=== PATIENT | male | born 1995 ===

== ENCOUNTER 2018-12-07 00:01 | Emergency (ER) | payer SELFPAY ==
[2018-12-07 00:12] VITALS: BP 134/72; PULSE 68; RESP 18; TEMP 98.2; O2SAT 100
--- NOTE | 2018-12-07 00:45 | C.PDOC ---
History Of Present Illness 23 y/o male presents to the ED complaining of bilateral eye irritation, onset this afternoon. 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 He was wearing a mask, with inadequate eye protection. Patient denies any change in vision. He also notes excess tearing from both ears. No FB sensation. Time Seen by Provider: 12/07/18 00:10 Chief Complaint (Nursing): Eye Problem History Per: Patient History/Exam Limitations: no limitations Onset/Duration Of Symptoms: Hrs Current Symptoms Are (Timing): Still Present Severity: Moderate Wears Contact Lens?: No Associated Symptoms: Pain. denies: Decreased Vision, Discharge From Eye Past Medical History Reviewed: Historical Data, Nursing Documentation, Vital Signs Vital Signs: Last Vital Signs Temp 98.2 F 12/07/18 00:07 Pulse 68 12/07/18 00:07 Resp 18 12/07/18 00:07 BP 134/72 12/07/18 00:07 Pulse Ox 100 12/07/18 00:07 - Medical History PMH: No Chronic Diseases Surgical History: No Surg Hx Family History: States: No Known Family Hx - Social History Hx Tobacco Use: No Hx Alcohol Use: No Hx Substance Use: No - Immunization History Hx Tetanus Toxoid Vaccination: No Hx Influenza Vaccination: No Hx Pneumococcal Vaccination: No Review Of Systems Constitutional: Negative for: Fever, Chills Eyes: Positive for: Conjunctivae Inflammation, Redness. Negative for: Vision Change Gastrointestinal: Negative for: Nausea, Vomiting Skin: Negative for: Rash Neurological: Negative for: Weakness, Numbness, Headache, Dizziness Physical Exam - Physical Exam Appears: Non-toxic, No Acute Distress Skin: Normal Color, Warm, No Rash Head: Atraumatic, Normacephalic Eye(s): bilateral: PERRL, EOMI, Other (Conjunctival injection bilaterally with excess tearing; No eyelid swelling, No chemosis) Oral Mucosa: Moist Chest: Symmetrical Respiratory: No Accessory Muscle Use, Other (Normal inspiratory effort) Pulses: Left Radial: Normal, Right Radial: Normal Neurological/Psych: Oriented x3, Normal Cranial Nerves Gait: Steady ED Course And Treatment O2 Sat by Pulse Oximetry: 100 (RA) Pulse Ox Interpretation: Normal Medical Decision Making Medical Decision Making: Impression: Keratitis Plan: Patient will be discharged home with RX for antihistamine drops, artificial tears, and antibiotic ointment. Advised to discontinue welding activities and get new mask with appropriate eye protection. Disposition Counseled Patient/Family Regarding: Diagnosis, Need For Followup, Rx Given - Disposition Referrals: Non [facility] Provider, [Primary Care Provider] - Disposition: HOME/ ROUTINE Disposition Time: 00:46 Condition: STABLE Prescriptions: Erythromycin 0.5% [Erythromycin] 1 inch OU 5XD #1 tube Ketotifen Fumarate [Zaditor] 1 - 2 drop OU BID #1 bottle Peg 400/Hypromellose/Glycerin [Artificial Tears Drops] 2 drop OU Q1H #1 bottle Instructions: Keratitis (ED) Forms: Gen Discharge Inst Persian, [employer] [facility] (Persian), Work Excuse Print Language: GEORGIAN - Clinical Impression Clinical Impression: UV keratitis - PA / HEALTH AND SAFETY ADVISOR / Resident Statement MD/DO has reviewed & agrees with the documentation as recorded. - Scribe Statement The provider has reviewed the documentation as recorded by the Scribarun Marley All medical record entries made by the Scribe were at my direction and personally dictated by me. I have reviewed the chart and agree that the record accurately reflects my personal performance of the history, physical exam, [facility] decision making, and the department course for this patient. I have also personally directed, reviewed, and agree with the discharge instructions and disposition.
== END 2018-12-07 00:56 | disposition home or self-care (01) ==
LOC: SUPCPDRO 00:01 → C.ER 00:01
DX: H16.133 Photokeratitis, bilateral (principal); W89.8XXA Exposure to other man-made visible and ultraviolet light, initial encounter